=== PATIENT | female | born 1995 | race Two or more races ===

== ENCOUNTER 2025-06-02 21:44 | Emergency (ER) | payer OTHER ==
[~2025-06-02] VITALS: Ht 157.5 cm; Wt 57.6 kg
[2025-06-03] MEDS ORDERED: KETOROLAC TROMETHAMINE 30 MG VIAL IM STA (00:03)
[2025-06-03] MEDS ORDERED: CEFTRIAXONE SODIUM 1,000 MG VIAL IM STA (00:04)
[2025-06-03] MEDS ORDERED: KETOROLAC TROMETHAMINE 30 MG VIAL ONE (00:06)
[2025-06-03] MEDS ORDERED: LIDOCAINE HCL 1% 10ML VIAL ONE (00:06)
[2025-06-03] MEDS ORDERED: CEFTRIAXONE SODIUM 1,000 MG VIAL ONE (00:06)
[2025-06-03 01:10] LABS: BASO % 0.4 % (0.1-1.2); EOS # 0.30 (0.04-0.54); EOS % 2.6 % (0.7-7.0); LYMPH # 2.14 (1.18-3.74); LYMPH % 18.5 % (19.3-53.1); MEAN PLATELET VOLUME 11.30 fl (9.4-12.4); MONO # 0.87 (0.24-0.82); MONO % 7.5 % (4.7-12.5); NEUT # 8.20 (1.56-6.13); NEUT % 70.7 % (34.0-71.1); RED CELL DISTRIBUTION WIDTH 12.1 % (11.6-14.4); URINE APPEARANCE Cloudy; URINE BILIRRUBIN Negative (NEGATIVE); URINE BLOOD Large; URINE COLOR Yellow; URINE GLUCOSE Negative (NEGATIVE); URINE KETONE Trace (NEGATIVE); URINE LEUKOCYTE Moderate; URINE NITRATE Negative; URINE UROBILINOGEN 1.0 E.U./dl
[2025-06-03 01:14] LABS: URINE BACTERIA 513.5 uL (0.0-1933); URINE EPITHELIAL CELLS 3.2 uL (0.0-38.8); URINE RBC 1419.8 uL (0.0-20.8); URINE WBC 1595.0 uL (0.0-23.2)
[2025-06-03 01:35] LABS: URINE CAST 0.00 uL (0.0-1.40); URINE PROTEIN 300 (NEGATIVE)
[2025-06-03 02:03] LABS: BUN CREA RATIO 18.0 (7.0-25.0); CREATININE SERUM 0.71 mg/dL (0.55-1.02); GFR 95.4; GLUCOSE FASTING 103.0 mg/dL (65-100); OSMOLALITY SERUM 282.0 MOSM/KG (275-295)
[2025-06-03] MEDS ORDERED: CEPHALEXIN500 MG PO (02:28)
[2025-06-03] MEDS ORDERED: PYRIDIUM DS200 MG PO (02:28)
[2025-06-03] MEDS ORDERED: KETO10TA2 PO (02:28)
== END 2025-06-03 02:48 ==
LOC: ER 21:44
PROVIDERS: General Practice
DX: N30.90 Cystitis, unspecified without hematuria (principal)